=== PATIENT | male | born 2000 | race African-American/Black ===

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

== ENCOUNTER 2018-03-06 07:22 | Emergency (ER) | payer OTHER ==
[2018-03-06 07:30] VITALS: BP 119/72; PULSE 102; RESP 18; TEMP 98.7
--- NOTE | 2018-03-06 07:55 | ED ---
General Adult HPI - General Chief complaint: Skin/Abscess/Foreign Body Stated complaint: Rash Time Seen by Provider: 03/06/18 07:40 Source: patient, RN notes reviewed Mode of arrival: ambulatory Limitations: no limitations - History of Present Illness Initial comments: Patient is a pleasant 17-year-old male presenting to the emergency department with rash. Symptoms have been occurring for the past couple of weeks. Patient states areas are uncomfortable. Patient does have purulent discharge at times. Patient states mostly areas are starting to heal at this point. Patient has been using alcohol and peroxide on them. No history of similar symptoms previously. Majority of lesions are on the legs however some on the arms. No fevers. - Related Data Previous Rx's Medication Instructions Recorded Ibuprofen [Motrin] 800 mg PO Q6HR #30 tab 10/28/17 Mupirocin 2% Oint [Bactroban 2% 1 applic TOPICAL TID #60 gm 03/06/18 Oint] Sulfamethox-Tmp 800-160Mg [Bactrim 2 each PO Q12HR #40 tab 03/06/18 DS 800-160 mg] Allergies Allergy/AdvReac Type Severity Reaction Status Date / Time No Known Allergies Allergy Verified 10/28/17 12:43 Review of Systems ROS Statement: Those systems with pertinent positive or pertinent negative responses have been documented in the HPI. ROS Other: All systems not noted in ROS Statement are negative. Constitutional: Denies: fever, chills Eyes: Denies: eye pain ENT: Denies: ear pain Respiratory: Denies: cough Cardiovascular: Denies: chest pain Endocrine: Denies: fatigue Gastrointestinal: Denies: abdominal pain Genitourinary: Denies: urgency Musculoskeletal: Denies: back pain Skin: Reports: lesions Neurological: Denies: headache Past Medical History Past Medical History: No Reported History History of Any Multi-Drug Resistant Organisms: None Reported Past Surgical History: No Surgical Hx Reported Past Psychological History: Bipolar, Depression Smoking Status: Current every day smoker Past Alcohol Use History: Occasional Past Drug Use History: Marijuana General Exam Limitations: no limitations General appearance: alert, in no apparent distress Head exam: Present: atraumatic Eye exam: Present: normal appearance ENT exam: Present: normal oropharynx Neck exam: Present: normal inspection Respiratory exam: Present: normal lung sounds bilaterally Cardiovascular Exam: Present: regular rate, normal rhythm GI/Abdominal exam: Present: soft. Absent: tenderness Extremities exam: Absent: tenderness Neurological exam: Present: alert Psychiatric exam: Present: normal affect, normal mood Skin exam: Present: other (Patient does have several lesions of the legs and a couple of the arms. These vary between couple millimeters and 3-4 cm. Appearance mostly of healing wounds. There is one or 2 areas that may be early abscesses.) Course Vital Signs 03/06/18 07:27 Temperature 98.7 F Pulse Rate 102 H Respiratory 18 Rate Blood Pressure 119/72 O2 Sat by Pulse 98 Oximetry Medical Decision Making - Medical Decision Making Patient does have multiple lesions, up to 10 with appearance mostly of healing wounds or abscesses. Patient will be covered with a course of antibiotics and is advised to follow-up with dermatology if symptoms continue. Disposition Clinical Impression: Abscess Disposition: HOME SELF-CARE Condition: Stable Instructions: Abscess (ED) Additional Instructions: Please follow-up with primary care physician in the next couple days for recheck. If symptoms continue consider dermatology follow-up. Return for fever , increased rash, worsening symptoms or other concerns. Prescriptions: Mupirocin 2% Oint [Bactroban 2% Oint] 1 applic TOPICAL TID #60 gm Sulfamethox-Tmp 800-160Mg [Bactrim DS 800-160 mg] 2 each PO Q12HR #40 tab Is patient prescribed a controlled substance at d/c from ED?: No Referrals: Milla Maldonado III, MD [STAFF PHYSICIAN] - 1-2 days Time of Disposition: 07:55
== END 2018-03-06 08:06 | disposition home or self-care (01) ==
LOC: EC 07:22
DX: L02.416 Cutaneous abscess of left lower limb (principal); L02.415 Cutaneous abscess of right lower limb; L02.414 Cutaneous abscess of left upper limb; L02.413 Cutaneous abscess of right upper limb; F17.200 Nicotine dependence, unspecified, uncomplicated
CPT/HCPCS: 99282